=== PATIENT | male | born 1995 | race Caucasian/White ===

== ENCOUNTER 2016-05-10 10:22 | Emergency (ER) | payer OTHER ==
[2016-05-10] MEDS ORDERED: SODIUM CHLORIDE 0.9% 1,000 ML IV STA (11:22)
[2016-05-10 12:04] LABS: Aty Lym Flag Slight; CH 29.8; CHCM 34.9; HCT 46.3 % (39.0-53.0); HDW 2.97; HGB 15.4 gm/dL (13.0-17.5); MCH 28.5 pg (25.0-35.0); MCHC 33.2 g/dL (31.0-37.0); MCV 85.9 fL (80.0-100.0); Mean Platelet Volume 6.8; RDW 13.3 % (11.5-15.5); WBC 4.9 k/uL (4.0-11.0); WBC (Perox) 4.65
[2016-05-10 12:12] LABS: Anion Gap 11 mmol/L; Blood Urea Nitrogen 13 mg/dL (9-20); Calcium 9.2 mg/dL (8.4-10.2); Carbon Dioxide 26 mmol/L (22-30); Chloride 103 mmol/L (98-107); Glucose 89 mg/dL (74-99); Non-African American GFR(MDRD) >60 (>60 ml/min/1.73 sqM); Sodium 140 mmol/L (137-145)
[2016-05-10 12:18] LABS: Add Differential Manual Differential
[2016-05-10 12:24] LABS: Manual Review Performed; Nucleated Red Blood Cells 0 /100 WBC (0-0); RBC Morphology Normal; Total Cells Counted 100
[2016-05-10 12:33] LABS: Reactive Lymphocytes Present
--- NOTE | 2016-05-10 12:47 | XR ---
EXAMINATION TYPE: XR chest 2V DATE OF EXAM: 05/10/2016 12:01 PM COMPARISON: NONE INDICATION: Sinus infection weakness lightheaded TECHNIQUE: Single frontal view of the chest is obtained. FINDINGS: The heart size is normal. The pulmonary vasculature is normal. The lungs are clear. IMPRESSION: 1. No acute pulmonary process.
[2016-05-10] MEDS ORDERED: SODIUM CHLORIDE 0.9% 1,000 ML IV ONE (13:06)
[2016-05-10] MEDS ORDERED: methylPREDNISolone SOD SUCCI 125 MG/2 ML VIAL IV STA (13:38)
--- NOTE | 2016-05-10 14:17 | ED ---
URI HPI - General Chief Complaint: Upper Respiratory Infection Stated Complaint: weakness, shaky Time Seen by Provider: 05/10/16 11:13 Source: patient Mode of arrival: ambulatory Limitations: no limitations - History of Present Illness Initial Comments: Feeling weak for the last for 5 days, appetite is down, been nauseous and threw up once he feels quite dehydrated he has not been eating well for the last several days and he has a loose stools twice a day for the last several days he is on amoxicillin for the last few days started by his family doctor as well as Paxil was started 2 days ago he does have a history of social anxiety and gastroesophageal reflux disease for which he takes omeprazole for quite some time now. Eyes any medical issues apart from above mentioned and denies any surgical intervention slightly family history is quite unremarkable and BOTH parents as well as siblings - Related Data Home Medications Medication Instructions Recorded Confirmed Amoxicillin 500 mg PO TID 05/10/16 05/10/16 Ascorbic Acid [Vitamin C] 500 mg PO DAILY 05/10/16 05/10/16 Guaifenesin/Dextromethorphan 2 cap PO ONCE PRN 05/10/16 05/10/16 [Robitussin Xhxmi-Ylgew-Ghbo Dm] Omeprazole [PriLOSEC] 20 mg PO AC-BID 05/10/16 05/10/16 PARoxetine HCL [Paxil] 10 mg PO DAILY 05/10/16 05/10/16 Previous Rx's Medication Instructions Recorded predniSONE 40 mg PO DAILY #5 tab 05/10/16 Allergies Allergy/AdvReac Type Severity Reaction Status Date / Time No Known Allergies Allergy Unverified 05/10/16 11:04 Review of Systems ROS Statement: Those systems with pertinent positive or pertinent negative responses have been documented in the HPI. ROS Other: All systems not noted in ROS Statement are negative. Past Medical History Past Medical History: No Reported History Past Surgical History: No Surgical Hx Reported Past Psychological History: No Psychological Hx Reported Smoking Status: Current every day smoker Past Alcohol Use History: None Reported Past Drug Use History: Marijuana General Exam - General Exam Comments Initial Comments: General: The patient is awake and alert, in no distress, and does not appear acutely ill. Skin: Skin is warm and dry and no rashes or lesions are noted. He looks pale and dehydrated Eye: Pupils are equal, round and reactive to light, extra-ocular movements are intact; there is normal conjunctiva bilaterally. Ears, nose, mouth and throat: There are moist mucous membranes and no oral lesions. Neck: The neck is supple, there is no tenderness or JVD. Cardiovascular: There is a regular rate and rhythm. No murmur, rub or gallop is appreciated. Respiratory: To auscultation bilateral, no wheezing no rhonchi no distress respiratory oseguera noticed Gastrointestinal: Soft, non-distended, non-tender abdomen without masses or organomegaly noted. There is no rebound or guarding present. Bowel sounds are unremarkable. Back: There is no tenderness to palpation in the midline. There is no obvious deformity. Musculoskeletal: Normal ROM, no tenderness, There is no pedal edema. There is no calf tenderness or swelling. No cords were appreciated. Neurological: CN II-XII intact, Cranial nerves III through XII are intact. There are no obvious motor or sensory deficits. Coordination appears grossly intact. Speech is normal. Psychiatric: Cooperative, appropriate mood & affect, normal judgment. Limitations: no limitations Course Vital Signs 05/10/16 10:41 Temperature 98.9 F Pulse Rate 95 Respiratory 20 Rate Blood Pressure 139/88 O2 Sat by Pulse 95 Oximetry Medical Decision Making - Lab Data Result diagrams: 05/10/16 11:40 05/10/16 11:40 Lab Results 05/10/16 05/10/16 05/10/16 Range/Units 11:40 11:40 11:40 WBC 4.9 (4.0-11.0) k/uL RBC 5.40 (4.30-5.90) m/uL Hgb 15.4 (13.0-17.5) gm/dL Hct 46.3 (39.0-53.0) % MCV 85.9 (80.0-100.0) fL MCH 28.5 (25.0-35.0) pg MCHC 33.2 (31.0-37.0) g/dL RDW 13.3 (11.5-15.5) % Plt Count 202 (150-450) k/uL Neutrophils % (Manual) 31.0 % Band Neutrophils % 3.0 % Lymphocytes % (Manual) 51.0 % Monocytes % (Manual) 15.0 % Neutrophils # (Manual) 1.7 (1.3-7.7) k/uL Lymphocytes # (Manual) 2.5 (1.0-4.8) k/uL Monocytes # (Manual) 0.7 (0-1.0) k/uL Nucleated RBCs 0 (0-0) /100 WBC Differential Comment Manual Slide Review Performed Reactive Lymphocytes Present RBC Morphology Normal Sodium 140 (137-145) mmol/L Potassium 5.0 (3.5-5.1) mmol/L Chloride 103 (98-107) mmol/L Carbon Dioxide 26 (22-30) mmol/L Anion Gap 11 mmol/L BUN 13 (9-20) mg/dL Creatinine 0.77 (0.66-1.25) mg/dL Est GFR (MDRD) Af Amer >60 (>60 ml/min/1.73 sqM) Est GFR (MDRD) Non-Af >60 (>60 ml/min/1.73 sqM) Glucose 89 (74-99) mg/dL Calcium 9.2 (8.4-10.2) mg/dL TSH 2.050 (0.465-4.680) mIU/L Heterophile Antibody Positive (Negative) Disposition Clinical Impression: Mononucleosis, Dehydration, Inadequate oral intake Disposition: HOME SELF-CARE Condition: Good Instructions: Mononucleosis (ED) Prescriptions: predniSONE 40 mg PO DAILY #5 tab
[2016-05-10 14:27] VITALS: BP 128/77; PULSE 85; RESP 18; TEMP 98.3
== END 2016-05-10 14:30 | disposition home or self-care (01) ==
LOC: EC 10:22
DX: B27.90 Infectious mononucleosis, unspecified without complication (principal); E86.0 Dehydration; R63.0 Anorexia; K21.9 Gastro-esophageal reflux disease without esophagitis; F41.8 Other specified anxiety disorders; F17.200 Nicotine dependence, unspecified, uncomplicated; Z79.899 Other long term (current) drug therapy
CPT/HCPCS: 99283; 96374; 96361 ×2; 36415; 80048; 84443; 85025; 86308; 71020; J2930

== ENCOUNTER 2018-05-10 19:56 | Inpatient (IN) | payer OTHER, BC, MEDICAID ==
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
[2018-05-10 21:07] LABS: Appearance,Urine Clear (Clear); Bilirubin,Urine Negative (Negative); Blood,Urine Negative (Negative); Color,Urine Light Yellow; Glucose,Urine (UA) Negative (Negative); Ketones,Urine Negative (Negative); Leukocyte Esterase,Urine Negative (Negative); Nitrite,Urine Negative (Negative); Protein,Urine Negative (Negative); Specific Gravity,Urine 1.007 (1.001-1.035); Urobilinogen,Urine <2.0 mg/dL (<2.0)
[2018-05-10 21:24] LABS: Amphetamine Screen,Urine Not Detected (NotDetected); Barbiturate Screen,Urine Not Detected (NotDetected); Benzodiazepines Screen,Urine Detected (NotDetected); Cocaine Screen,Urine Not Detected (NotDetected); Methadone Screen, Urine Not Detected (NotDetected); Opiate Screen,Urine Not Detected (NotDetected); Oxycodone Screen, Urine Not Detected (NotDetected); Phencyclidine Screen,Urine Not Detected (NotDetected); Tricyclic Antidepressant,Urine Not Detected (NotDetected); Urn Cannabinoid Scrn Detected (NotDetected)
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
[2018-05-10 21:48] LABS: Basophils % (A) 0 %; Eosinophils # (A) 0.1 k/uL (0-0.7); Eosinophils % (A) 1 %; HCT 43.4 % (39.0-53.0); HGB 14.4 gm/dL (13.0-17.5); Lymphocytes # (A) 1.7 k/uL (1.0-4.8); Lymphocytes % (A) 19 %; MCHC 33.2 g/dL (31.0-37.0); MCV 96.6 fL (80.0-100.0); Mean Platelet Volume 6.7; Monocytes # (A) 0.5 k/uL (0-1.0); Monocytes % (A) 6 %; Neutrophils # (A) 6.2 k/uL (1.3-7.7); Neutrophils % (A) 72 %; Platelet Count 237 k/uL (150-450); RDW 14.8 % (11.5-15.5); WBC 8.7 k/uL (3.8-10.6)
[2018-05-10 21:56] LABS: INR 1.1 (<1.2); Partial Thromboplastin Time 28.1 sec (22.0-30.0)
[2018-05-10 21:58] LABS: ALT 31 U/L (21-72); AST 28 U/L (17-59); Albumin 3.7 g/dL (3.5-5.0); Alkaline Phosphatase 96 U/L (38-126); Anion Gap 9 mmol/L; Blood Urea Nitrogen 10 mg/dL (9-20); Carbon Dioxide 24 mmol/L (22-30); Chloride 108 mmol/L (98-107); Glucose 83 mg/dL (74-99); Potassium 4.3 mmol/L (3.5-5.1); Sodium 141 mmol/L (137-145); Total Bilirubin 0.3 mg/dL (0.2-1.3); Total Protein 6.3 g/dL (6.3-8.2)
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
[2018-05-10 22:02] LABS: Alcohol 179 mg/dL
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
[2018-05-11] MEDS ORDERED: IBUPROFEN 600 MG TAB PO STA (09:32)
[2018-05-11] MEDS ORDERED: LORazepam 1 MG TAB PO STA (09:51)
[2018-05-11] MEDS ORDERED: MAG HYDROX/AL HYDROX/SIMETH 30 ML CUP PO PRN (10:28)
[2018-05-11] MEDS ORDERED: LORazepam 1 MG TAB PO PRN (10:28)
[2018-05-11] MEDS ORDERED: ACETAMINOPHEN TAB 325 MG TAB PO PRN (10:28)
[2018-05-11] MEDS ORDERED: MAGNESIUM HYDROXIDE 2,400 MG/10 ML CUP PO PRN (10:28)
[2018-05-11] MEDS ORDERED: PARoxetine 10 MG TAB PO SCH (10:45)
[2018-05-11] MEDS: NICOTINE 14MG/24HR PATCH TRANSDERM SCH (11:14)
[2018-05-11 11:23] VITALS: BMI 21.7
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
[2018-05-11] MEDS ORDERED: CHLORHEXIDINE 0.12% PO PRN (19:07)
[2018-05-11] MEDS ORDERED: CHLORHEXIDINE 0.12% PO SCH (20:17)
[2018-05-11] MEDS: CHLORHEXIDINE 0.12% PO SCH (20:51)
[2018-05-11] MEDS: IBUPROFEN 600 MG TAB PO PRN (21:11)
[2018-05-12 08:28] LABS: Basophils % (A) 0 %; Eosinophils # (A) 0.1 k/uL (0-0.7); Eosinophils % (A) 1 %; HCT 49.9 % (39.0-53.0); HGB 16.4 gm/dL (13.0-17.5); Lymphocytes # (A) 1.2 k/uL (1.0-4.8); Lymphocytes % (A) 13 %; MCH 31.5 pg (25.0-35.0); MCHC 32.9 g/dL (31.0-37.0); MCV 95.7 fL (80.0-100.0); Mean Platelet Volume 6.5; Monocytes # (A) 0.6 k/uL (0-1.0); Monocytes % (A) 6 %; Neutrophils # (A) 7.1 k/uL (1.3-7.7); Neutrophils % (A) 79 %; Platelet Count 281 k/uL (150-450); RBC 5.21 m/uL (4.30-5.90); RDW 14.4 % (11.5-15.5); WBC 9.1 k/uL (3.8-10.6)
[2018-05-12 08:58] LABS: ALT 30 U/L (21-72); AST 32 U/L (17-59); Albumin 4.6 g/dL (3.5-5.0); Alkaline Phosphatase 115 U/L (38-126); Anion Gap 11 mmol/L; Blood Urea Nitrogen 14 mg/dL (9-20); Calcium 9.8 mg/dL (8.4-10.2); Carbon Dioxide 27 mmol/L (22-30); Chloride 99 mmol/L (98-107); Cholesterol 173 mg/dL (<200); Glucose 78 mg/dL (74-99); HDL Cholesterol 70 mg/dL (40-60); LDL Cholesterol,Calculated 71 mg/dL (0-99); Potassium 5.5 mmol/L (3.5-5.1); Sodium 137 mmol/L (137-145); Total Bilirubin 0.7 mg/dL (0.2-1.3); Total Protein 7.4 g/dL (6.3-8.2); Triglycerides 160 mg/dL (<150)
[2018-05-12] MEDS: IBUPROFEN 600 MG TAB PO PRN ×2 (09:01→16:30)
[2018-05-12] MEDS: PARoxetine 20 MG TAB PO SCH (09:01)
[2018-05-12] MEDS: NICOTINE 14MG/24HR PATCH TRANSDERM SCH (09:01)
[2018-05-12] MEDS: PANTOPRAZOLE 40 MG TABLET PO SCH (09:01)
[2018-05-12] MEDS: CHLORHEXIDINE 0.12% PO SCH ×2 (09:03→21:10)
--- NOTE | 2018-05-12 11:33 | P.PN ---
Progress Note - Text Interval history: The patient is found in his room he follows me to an interview room. The psychiatric evaluation was reviewed. The patient states that he is sad that he is not with his family and he misses them. He indicates this is the first time he's ever been away from home. He described the events precipitating this admission. He acknowledges that his behaviors were dangerous and potentially life-threatening but he states he had no true suicidal ideation intent or plan. In reviewing other paperwork it appears he did tell people he had a suicide attempt in the recent past. He states that he has been drinking alcohol heavily the last 3-4 months. He states this all started after the breakup with his former girlfriend and he continues to grieve that relationship. He was evaluated by Dr. Shields. He stayed on the Paxil 20 mg. We spent a considerable amount of time discussing his presenting symptoms and alcohol use. The patient feels that he is able to discontinue alcohol use on his own and he does not need inpatient chemical dependency treatment. He hasn't been attending groups this morning and we discussed the importance of attending group. We discussed trying to facilitate a family meeting and he is agreeable. Mental status exam: The patient is alert he is dressed in his own clothing. His hands are visibly dirty he has a bruise on his right elbow and he is wearing a brace on his right ankle. He has very poor dentition. Teeth on his lower jaw are heavily stained and he states he had 10 teeth pulled on his upper jaw just recently. He has a disheveled appearance he smells of smoke. He indicates his mood as sad because he misses his family. He is tearful twice during our conversation. He denies having any suicidal or homicidal ideation intent or plan. He is trying to facilitate a discharge out of mental health unit and may be underreporting. He reports no auditory or visual hallucinations or any specific delusions. There is no observed evidence of psychosis. He demonstrates no tangential thinking loose associations or flight of ideas. He does not appear hypomanic or manic. Insight and judgment limited. He demonstrates no verbal or physical aggressiveness. Plan: The patient is strongly encouraged to attend groups. He wishes to remain on the Paxil 20 mg daily. He feels it has helped to social anxiety. We discussed his alcohol use at length. He does not feel that he requires inpatient chemical dependency treatment. Vital signs reviewed. We will continue to monitor him for safety. Social work will be asked to arrange a support meeting.
[2018-05-12] MEDS: FOLIC ACID 1 MG TAB PO SCH (13:41)
[2018-05-12] MEDS: THIAMINE 100 MG TAB PO SCH (13:41)
[2018-05-12 18:35] LABS: Hemoglobin A1C 4.8 % (4.0-6.0)
[2018-05-13 06:44] VITALS: BP 130/89; PULSE 126; RESP 18; TEMP 98.9
[2018-05-13] MEDS: PARoxetine 20 MG TAB PO SCH (08:42)
[2018-05-13] MEDS: THIAMINE 100 MG TAB PO SCH (08:42)
[2018-05-13] MEDS: FOLIC ACID 1 MG TAB PO SCH (08:42)
[2018-05-13] MEDS: NICOTINE 14MG/24HR PATCH TRANSDERM SCH (08:42)
[2018-05-13] MEDS: PANTOPRAZOLE 40 MG TABLET PO SCH (08:42)
[2018-05-13] MEDS: IBUPROFEN 600 MG TAB PO PRN (08:43)
[2018-05-13] MEDS: CHLORHEXIDINE 0.12% PO SCH (08:44)
[2018-05-13 09:27] LABS: ALT 27 U/L (21-72); AST 30 U/L (17-59); Albumin 4.7 g/dL (3.5-5.0); Alkaline Phosphatase 113 U/L (38-126); Anion Gap 10 mmol/L; Blood Urea Nitrogen 14 mg/dL (9-20); Carbon Dioxide 29 mmol/L (22-30); Chloride 97 mmol/L (98-107); Glucose 224 mg/dL (74-99); Sodium 136 mmol/L (137-145); Total Bilirubin 0.6 mg/dL (0.2-1.3); Total Protein 7.8 g/dL (6.3-8.2)
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
== END 2018-05-13 13:10 | disposition home or self-care (01) | DRG 881 ==
LOC: EC 19:56 → 3MHU 05-11 10:06
PROVIDERS: ADMIT Psychiatry & Neurology Psychiatry; ATTEND Psychiatry & Neurology Psychiatry
DX: F32.9 Major depressive disorder, single episode, unspecified (principal); R45.851 Suicidal ideations; F12.90 Cannabis use, unspecified, uncomplicated; F17.200 Nicotine dependence, unspecified, uncomplicated; F40.10 Social phobia, unspecified; S93.401A Sprain of unspecified ligament of right ankle, initial encounter; S50.01XA Contusion of right elbow, initial encounter; Z72.89 Other problems related to lifestyle; Z79.899 Other long term (current) drug therapy; Z71.41 Alcohol abuse counseling and surveillance of alcoholic; V89.2XXA Person injured in unspecified motor-vehicle accident, traffic, initial encounter; Y92.410 Unspecified street and highway as the place of occurrence of the external cause
CPT/HCPCS: 29515; 36415; 70450; 71260; 72125; 74177; 80053; 80061; 80306; 80320; 81003; 82075; 83036; 84443; 85025; 85610; 85730; 86850; 86900; 86901; 93005; 99285

== ENCOUNTER 2018-05-22 12:05 | Inpatient (IN) | payer OTHER ==
[~2018-05-22 12:05] MED LIST: DIPH,PERTUS(ACELL)TETVAC-LF 0.5 ML VIAL IM ONE; SODIUM CHLORIDE 0.9% 500 ML 500 ML IV STA
[2018-05-22 12:08] LABS: Glucose,Whole Blood 91 mg/dL (75-99)
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
[2018-05-22 12:27] LABS: Basophils # (A) 0.1 k/uL (0-0.2); Basophils % (A) 1 %; Eosinophils # (A) 0.2 k/uL (0-0.7); Eosinophils % (A) 2 %; HCT 46.9 % (39.0-53.0); HGB 14.7 gm/dL (13.0-17.5); Lymphocytes # (A) 2.8 k/uL (1.0-4.8); Lymphocytes % (A) 26 %; MCH 30.5 pg (25.0-35.0); MCHC 31.3 g/dL (31.0-37.0); MCV 97.5 fL (80.0-100.0); Mean Platelet Volume 6.6; Monocytes # (A) 0.6 k/uL (0-1.0); Monocytes % (A) 6 %; Neutrophils # (A) 6.7 k/uL (1.3-7.7); Neutrophils % (A) 63 %; Platelet Count 436 k/uL (150-450); RBC 4.81 m/uL (4.30-5.90); RDW 14.7 % (11.5-15.5); WBC 10.5 k/uL (3.8-10.6)
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
[2018-05-22 12:36] LABS: Partial Thromboplastin Time 22.1 sec (22.0-30.0); Prothrombin Time 10.5 sec (9.0-12.0)
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
[2018-05-22 12:41] LABS: ALT 117 U/L (21-72); AST 226 U/L (17-59); Albumin 4.3 g/dL (3.5-5.0); Alkaline Phosphatase 132 U/L (38-126); Amylase 91 U/L (30-110); Anion Gap 9 mmol/L; Blood Urea Nitrogen 15 mg/dL (9-20); Calcium 9.4 mg/dL (8.4-10.2); Carbon Dioxide 28 mmol/L (22-30); Chloride 105 mmol/L (98-107); Glucose 85 mg/dL (74-99); Lipase 154 U/L (23-300); Potassium 4.5 mmol/L (3.5-5.1); Sodium 142 mmol/L (137-145); Total Bilirubin 0.3 mg/dL (0.2-1.3); Total Protein 7.2 g/dL (6.3-8.2)
[2018-05-22 12:56] LABS: Alcohol 244 mg/dL
[2018-05-22 13:03] LABS: Creatine Kinase 89 U/L (55-170)
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
[2018-05-22 13:16] LABS: Creatine Kinase MB 0.6 ng/mL (0.0-2.4); Troponin I <0.012 ng/mL (0.000-0.034)
[2018-05-22] MEDS ORDERED: THIAMINE 100 MG/ML 2 ML VIAL IM STA (13:46)
[2018-05-22] MEDS ORDERED: LORazepam 2 MG/ML INJ IV PRN ×3 (13:46)
[2018-05-22] MEDS: SODIUM CHLORIDE 0.9% 1,000 ML IV ONE ×2 (14:25→18:34)
[2018-05-22 14:38] VITALS: BMI 25.2
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
[2018-05-22] MEDS ORDERED: SODIUM CHLORIDE 0.9% 1,000 ML IV ONE (17:37)
[2018-05-22] MEDS: NICOTINE 14MG/24HR PATCH TRANSDERM SCH (17:39)
[2018-05-22] MEDS ORDERED: IBUPROFEN 600 MG TAB PO STA (17:41)
[2018-05-22] MEDS: THIAMINE 100 MG TAB PO SCH (18:33)
[2018-05-22] MEDS: IBUPROFEN 600 MG TAB PO SCH (22:11)
[2018-05-22 22:21] LABS: Appearance,Urine Clear (Clear); Bilirubin,Urine Negative (Negative); Blood,Urine Negative (Negative); Color,Urine Light Yellow; Glucose,Urine (UA) Negative (Negative); Ketones,Urine Negative (Negative); Leukocyte Esterase,Urine Negative (Negative); Nitrite,Urine Negative (Negative); Protein,Urine Negative (Negative); Specific Gravity,Urine 1.018 (1.001-1.035); Urobilinogen,Urine <2.0 mg/dL (<2.0)
[2018-05-22 22:31] LABS: Amphetamine Screen,Urine Not Detected (NotDetected); Barbiturate Screen,Urine Not Detected (NotDetected); Benzodiazepines Screen,Urine Detected (NotDetected); Cocaine Screen,Urine Not Detected (NotDetected); Methadone Screen, Urine Not Detected (NotDetected); Opiate Screen,Urine Not Detected (NotDetected); Oxycodone Screen, Urine Not Detected (NotDetected); Phencyclidine Screen,Urine Not Detected (NotDetected); Tricyclic Antidepressant,Urine Not Detected (NotDetected); Urn Cannabinoid Scrn Detected (NotDetected)
[2018-05-23] MEDS: IBUPROFEN 600 MG TAB PO SCH (07:28)
[2018-05-23] MEDS: NICOTINE 14MG/24HR PATCH TRANSDERM SCH (07:30)
[2018-05-23] MEDS ORDERED: PANTOPRAZOLE 40 MG TABLET PO SCH (07:30)
--- NOTE | 2018-05-23 08:21 | XR ---
EXAMINATION TYPE: XR ankle complete RT DATE OF EXAM: 05/23/2018 COMPARISON: NONE HISTORY: Pain TECHNIQUE: Frontal, lateral and oblique images of the right ankle are obtained. COMPARISON: None. FINDINGS: There is no acute fracture/dislocation evident. The joint spaces appear within normal dias its. The overlying soft tissue appears unremarkable. IMPRESSION: There is no acute fracture or dislocation seen.
[2018-05-23 08:37] LABS: ALT 78 U/L (21-72); AST 74 U/L (17-59); Albumin 3.8 g/dL (3.5-5.0); Alcohol <10 mg/dL; Alkaline Phosphatase 127 U/L (38-126); Anion Gap 5 mmol/L; Blood Urea Nitrogen 15 mg/dL (9-20); Calcium 8.7 mg/dL (8.4-10.2); Carbon Dioxide 26 mmol/L (22-30); Chloride 106 mmol/L (98-107); Glucose 85 mg/dL (74-99); Potassium 4.6 mmol/L (3.5-5.1); Sodium 137 mmol/L (137-145); Total Bilirubin 0.6 mg/dL (0.2-1.3); Total Protein 6.4 g/dL (6.3-8.2)
[2018-05-23] MEDS ORDERED: PARoxetine 10 MG TAB PO SCH (09:00)
[2018-05-23 10:08] VITALS: RESP 16
[2018-05-23] MEDS: THIAMINE 100 MG TAB PO SCH (11:04)
[2018-05-23 12:25] VITALS: BP 144/73; PULSE 93; TEMP 98.2
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
== END 2018-05-23 13:35 | disposition home or self-care (01) | DRG 897 ==
LOC: EC 12:05 → 3NMEDONC 13:44
PROVIDERS: ADMIT Surgery Plastic and Reconstructive Surgery; ATTEND Surgery Plastic and Reconstructive Surgery
DX: F10.129 Alcohol abuse with intoxication, unspecified (principal); E86.0 Dehydration; F17.200 Nicotine dependence, unspecified, uncomplicated; F32.9 Major depressive disorder, single episode, unspecified; K21.9 Gastro-esophageal reflux disease without esophagitis; S93.401A Sprain of unspecified ligament of right ankle, initial encounter; R74.8 Abnormal levels of other serum enzymes; S80.11XA Contusion of right lower leg, initial encounter; Z79.899 Other long term (current) drug therapy; Z82.49 Family history of ischemic heart disease and other diseases of the circulatory system; V89.2XXA Person injured in unspecified motor-vehicle accident, traffic, initial encounter; X58.XXXA Exposure to other specified factors, initial encounter; Y92.410 Unspecified street and highway as the place of occurrence of the external cause; Y90.8 Blood alcohol level of 240 mg/100 ml or more
CPT/HCPCS: 36415; 70450; 71045; 71260; 72125; 72170; 74177; 80053; 80306; 80320; 81003; 82150; 82550; 82553; 83605; 83690; 84484; 85025; 85610; 85730; 86850; 86900; 86901; 90471; 90715; 93005; 99291